=== PATIENT | female | born 1975 | race Caucasian/White ===

== ENCOUNTER 2016-08-28 14:28 | Emergency (ER) | payer SELFPAY ==
[2016-08-28 14:32] VITALS: BP 133/74; BMI 39.9
[2016-08-28] MEDS ORDERED: TETRACAINE HCL ONE (14:43)
[2016-08-28] MEDS ORDERED: FUL-GLO STRIP ONE (14:44)
[2016-08-28] MEDS ORDERED: TORADOL 60 MG VIAL IM ONE (14:53)
[2016-08-28] MEDS ORDERED: ZOFRAN INJ 4 MG VIAL IM ONE (14:55)
--- NOTE | 2016-08-28 14:55 | DR.GENAD ---
HPI - PCP Primary Care Physician: FAWN - HPI Comment HPI Comment: ANUPAMA BELOW. - Complaint/Symptoms Chief Complaint Doctors Comments: RIGHT EYE PAIN, REDNESS AND TEARING UPON WAKING UP THIS AM. SHE IS NOW HAVING HEADACHE, SEVERE PAIN RIGHT FOREHEAD ANDNAUSEA. VOMITED TIMES ONE. DENIES NASAL CONGESTION OR POST NASAL DRAINAGE. Chief Complaint:: PT. C/O RIGHT EYE PAIN, REDNESS, AND WATERING. PT. STATES THE PAIN RADIATES UP TO RIGHT SIDE OF FOREHEAD. PT. ALSO C/O N/V. 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 - Family History History of Family Medical Conditions: Yes Family Medical History: Coronary Artery Disease, Heart Failure, Hypertension - Social History Does patient currently use any type of tobacco product: Yes Have you used tobacco products in the last 12 months: Yes Type of Tobacco Use: Cigarettes How many years tobacco product used: 26 Does any household member use tobacco: Yes Alcohol Use: None Do you use any recreational Drugs:: No Lives With: Spouse Lives Where: Home - infectious screening In the last 2 months have you had wt loss of >10#?: NO Have you had fever, night sweats or hemotysis?: No Have you traveled outside the country in the last 6 months?: No Isolation: Standard ROS - Review of Systems Constitutional: No Symptoms Reported. negative: Chills, Fever Eyes: Eye Pain, Blurred Vision, Tearing, Discharge, Photophobia ENTM: No Symptoms Reported Respiratoy: No Symptoms Reported Cardiovascular: No Symptoms Reported Gastrointestinal/Abdominal: No Symptoms Reported Genitourinary: No Symptoms Reported Neurological: Headache Musculoskeletal: Muscle Pain Integumentary: No Symptoms Reported Hematologic/Lymphatic: No Symptoms Reported Endocrine: No Symptoms Reported All Other Systems: Reviewed and Negative PE - Vital Signs Vitals: Temperature 97.8 F Pulse Rate 93 Respiratory Rate 18 Blood Pressure [Right Arm] 105/51 Blood Pressure [Left Arm] 120/57 Blood Pressure 133/74 O2 Sat by Pulse Oximetry 96 - General Limitations: No Limitations General Appearance: Alert - Head Head Exam: Normal Inspection - Eyes Eye exam: PERRL, EOMI, Conjunctival Injection (RIGHT GREATER THAN LEFT.), Periorbital Tenderness (RIGHT EYE) - ENT ENT Exam: Normal External Ear Exam External Ear Exam: Normal External Inspection TM/Canal Exam: Bilateral Normal Nose Exam: Sinus Tenderness (NASAL AND TIGHT FRONTAL SINUS TENDER.) Mouth Exam: Normal Inspection Throat Exam: Normal Inspection - Neck Neck Exam: Normal Inspection - Chest Chest Inspection: Symmetric Chest Wall Rise - Respiratory Respiratory Exam: Normal Lung Sounds Bilat Respiratory Exam: Bilateral Clear to Auscultation - Cardiovascular Cardiovascular Exam: Regular Rate, Normal Rhythm, Normal Heart Sounds - Abdominal Exam Abdominal Exam: Normal Bowel Sounds, Soft. negative: Tenderness - Extremities Extremities Exam: Normal Inspection - Back Back Exam: Normal Inspection - Neurologic Neurological Exam: Alert, Oriented X3 - Psychiatric Psychiatric Exam: Anxious - Skin Skin Exam: Erythema MDM - Additional Information Additional Information Obtained From: Family - Differential Diagnosis Differential Diagnosis: CONJUNCTIVITIS, HEADACHE, SINUSITIS, CORNEA ABRASION Course - Treatment Treatment: SEE ORDERS. FLUERO DYE RIGHT EYE. CORNEA ABRASION RIGHT EYE. IM PAIN MED IN ED. - Reevaluation 1st: Improved (PAIN DECREASING) - Education/Counseling Education/Counseling: Patient, Family, Education Educated On: Treatment, Diagnosis, Needs for Follow Up ROR - XRAY XRAY Interpreted by: Radiologist XRAY Findings: REPORT DISCUSS WITH PATIENT - Diagnosis Discharge Problem: Conjunctivitis of both eyes Qualifiers: Conjunctivitis type: unspecified Qualified Code(s): H10.9 - Unspecified conjunctivitis Sinusitis Qualifiers: Sinusitis location: pansinusitis Chronicity: acute Recurrence: not specified as recurrent Qualified Code(s): J01.40 - Acute pansinusitis, unspecified - Discharge Plan Disposition: HOME, SELF-CARE Condition: Stable Prescriptions: Amoxicillin [Amoxil 875 mg] 875 mg PO BID #20 tab [id number]-Enwvrtav [Fioricet Tab] 1 tab PO Q8H PRN #30 tab PRN Reason: Migraine Headache Cetirizine HCl [Zyrtec Tab 10 mg] 10 mg PO DAILY #30 tab - Follow ups/Referrals Follow ups/Referrals: ANNEMARIE AUGUSTINE [Primary Care Provider] - 1 day - Instructions Instructions: Bacterial Conjunctivitis, Sinusitis, Adult, [id number], Sinus Headache Additional Instructions: RETURN TO ED IF WORSE.
[2016-08-28] MEDS ORDERED: GENTAMICIN SULF (OPHTH) AFFEYE ONE (14:59)
[2016-08-28] MEDS ORDERED: TORADOL 60 MG VIAL ONE (15:04)
[2016-08-28] MEDS ORDERED: ZOFRAN INJ 4 MG VIAL ONE (15:04)
--- NOTE | 2016-08-28 15:40 | CT ---
HISTORY: Right eye pain and redness, nausea and vomiting Study: CT facial bones Comparison: None Technique: Multiple axial images of the facial structures were obtained from the mandible to superio r portions of the orbits. Findings: The bilateral bony orbits are intact. There is very mild right intraorbital edema noted. No postsept al abnormality is identified. Air-fluid levels are identified within the bilateral sphenoid sinuses as well as within the right maxillary sinus. There is also mucosal thickening throughout the paranas al sinuses. These findings are most consistent with acute on chronic sinusitis. There are postsurgic al changes of the paranasal sinuses including bilateral antrostomies and uncinectomies as well as pa rtial ethmoidectomies. No acute bony abnormality is identified within the facial bones. The nasal se ptum is midline. There appears to be a dental ligia involving the right maxillary 2nd molar tooth. T he visualized brain is grossly unremarkable. IMPRESSION: 1. Findings most consistent with acute on chronic sinusitis. There is very mild right intraorbital e ernesto without postseptal abnormality identified. Reported By:
[2016-08-28] MEDS ORDERED: MORPHINE SULFATE INJ 4 MG IM ONE (16:01)
[2016-08-28] MEDS ORDERED: ROCEPHIN VIAL 1 GM IM ONE (16:01)
[2016-08-28] MEDS ORDERED: GENTAMICIN SULF (OPHTH) ONE (16:03)
[2016-08-28] MEDS ORDERED: MORPHINE SULFATE INJ 4 MG ONE (16:04)
[2016-08-28] MEDS ORDERED: ROCEPHIN VIAL 1 GM ONE (16:04)
== END 2016-08-28 16:14 | disposition home or self-care (01) ==
LOC: ER 14:33
DX: J01.40 Acute pansinusitis, unspecified (principal); H10.89 Other conjunctivitis
CPT/HCPCS: 70486; 96372; 99282; 99283; J0696; J1885; J2270; J2405

== ENCOUNTER 2016-09-29 22:03 | Emergency (ER) | payer SELFPAY ==
[2016-09-29 22:11] VITALS: BP 166/83
--- NOTE | 2016-09-29 23:59 | DR.GENAD ---
HPI - PCP Primary Care Physician: FAWN - Complaint/Symptoms Chief Complaint Doctors Comments: Left flank pain since this morning and decrease urinary output. no fever, chills, sweats, vomiting. Chief Complaint:: PT C/O LOWER BACK PAIN. PT STATES SHE HAS A HISTORY OF RENAL PROBLEMS AND IS UNSURE IF THIS PAIN IS A KIDNEY STONE OR NEPHRITIS. PT ALSO COMPLAINING OF NAUSEA. 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, Tonsillectomy - Family History History of Family Medical Conditions: Yes Family Medical History: Coronary Artery Disease, Heart Failure, Hypertension - Social History Alcohol Use: None Do you use any recreational Drugs:: No Lives With: Family Lives Where: Home - infectious screening In the last 2 months have you had wt loss of >10#?: NO Have you had fever, night sweats or hemotysis?: No Have you traveled outside the country in the last 6 months?: No Isolation: Standard ROS - Review of Systems Constitutional: No Symptoms Reported Respiratoy: No Symptoms Reported Cardiovascular: No Symptoms Reported Gastrointestinal/Abdominal: Nausea Neurological: No Symptoms Reported Musculoskeletal: Back Pain, Back Integumentary: No Symptoms Reported Hematologic/Lymphatic: No Symptoms Reported Endocrine: No Symptoms Reported Psychiatric: No Symptoms Reported All Other Systems: Reviewed and Negative PE - Vital Signs Vitals: Temperature 98.0 F Pulse Rate 100 Respiratory Rate 20 Blood Pressure [Right Arm] 105/51 Blood Pressure [Left Arm] 120/57 Blood Pressure 166/83 O2 Sat by Pulse Oximetry 98 - General Limitations: No Limitations General Appearance: Alert, In No Apparent Distress - Chest Chest Inspection: Normal Inspection - Respiratory Respiratory Exam: Normal Lung Sounds Bilat - Cardiovascular Cardiovascular Exam: Regular Rate, Normal Rhythm, Normal Heart Sounds - Abdominal Exam Abdominal Exam: Normal Inspection, Normal Bowel Sounds, Soft - Extremities Extremities Exam: Normal Inspection, Full ROM - Back Back Exam: (L) CVA Tenderness - Neurologic Neurological Exam: Alert, Oriented X3 - Psychiatric Psychiatric Exam: Normal Affect - Skin Skin Exam: Warm, Dry, Intact, Normal Color ROR - Labs Reviewed Result Diagrams: 09/30/16 00:55 09/30/16 00:55 Laboratory: WBC 10.6 X10^3/uL (3.6-10.0) H 09/30/16 00:55 RBC 5.62 X10^6/uL (3.5-5.4) H 09/30/16 00:55 Hgb 16.5 g/dL (12.0-16.0) H 09/30/16 00:55 Hct 48.3 % (36.0-47.0) H 09/30/16 00:55 MCV 85.9 fL (80.0-100.0) 09/30/16 00:55 MCH 29.3 pg (27.0-34.0) 09/30/16 00:55 MCHC 34.1 g/dL (33.0-35.0) 09/30/16 00:55 RDW 13.8 % (11.6-16.5) 09/30/16 00:55 Plt Count 176 X10^3/uL (150.0-450.0) 09/30/16 00:55 Plt Count Comment Adequate (ADEQUATE) 09/30/16 00:55 MPV 10.2 fL (7.4-11.0) 09/30/16 00:55 Neut % 48.9 % (42.0-75.0) 09/30/16 00:55 Lymph % 36.4 % (21.0-51.0) 09/30/16 00:55 [place] % 7.1 % (0.0-13.0) 09/30/16 00:55 Eos % 6.7 % (0.9-2.9) H 09/30/16 00:55 Baso % 0.9 % (0.2-1.0) 09/30/16 00:55 Neut # 5.2 x10^3/uL (2.2-4.8) H 09/30/16 00:55 Lymph # 3.9 X10^3/uL (1.3-2.9) H 09/30/16 00:55 [place] # 0.7 x10^3/uL (0.3-0.8) 09/30/16 00:55 Eos # 0.7 x10^3/uL (0.0-0.2) H 09/30/16 00:55 Baso # 0.1 X10^3/uL (0.0-0.1) 09/30/16 00:55 Absolute Nucleated RBC 0.2 /100WBC 09/30/16 00:55 Plt Clumps, EDTA Rare 09/30/16 00:55 Plt Morphology Comment Normal (NORMAL) 09/30/16 00:55 RBC Morphology Normal (NORMAL) 09/30/16 00:55 Sodium 140 mmol/L (136-145) 09/30/16 00:55 Corrected Sodium 140 mmol/L (136-145) 09/30/16 00:55 Potassium 4.8 mmol/L (3.5-5.1) 09/30/16 00:55 Chloride 106 mmol/L (98-107) 09/30/16 00:55 Carbon Dioxide 24.1 mmol/L (21-32) 09/30/16 00:55 BUN 16 mg/dL (7-18) 09/30/16 00:55 Creatinine 1.03 mg/dL (0.55-1.02) H 09/30/16 00:55 Est GFR (MDRD) Af Amer > 60 (>60) 09/30/16 00:55 Est GFR (MDRD) Non-Af > 60 (>60) 09/30/16 00:55 Glucose 119 mg/dL (65-99) H 09/30/16 00:55 Calcium 8.7 mg/dL (8.5-10.1) 09/30/16 00:55 Corrected Calcium TNP 09/30/16 00:55 Total Bilirubin 0.30 mg/dL (0.2-1.0) 09/30/16 00:55 AST 29 Units/L (15-37) 09/30/16 00:55 ALT 36 Units/L (12-78) 09/30/16 00:55 Alkaline Phosphatase 57 Units/L (46-116) 09/30/16 00:55 Total Protein 7.2 g/dL (6.4-8.2) 09/30/16 00:55 Albumin 3.4 g/dL (3.4-5.0) 09/30/16 00:55 Globulin 3.8 g/dL (2.5-4.5) 09/30/16 00:55 Albumin/Globulin Ratio 0.9 Ratio (1.1-2.1) L 09/30/16 00:55 Specimen Type Clean catch urine 09/30/16 00:06 Urine Color Yellow (YELLOW) 09/30/16 00:06 Urine Appearance Hazy (CLEAR) 09/30/16 00:06 Urine pH 5.0 (5.0 - 8.0) 09/30/16 00:06 Ur Specific [place] 1.025 (1.000-1.030) 09/30/16 00:06 Urine Protein 1+ (NEGATIVE) 09/30/16 00:06 Urine Glucose (UA) Negative (NEGATIVE) 09/30/16 00:06 Urine Ketones Negative (NEGATIVE) 09/30/16 00:06 Urine Occult Blood 1+ (NEGATIVE) 09/30/16 00:06 Urine Nitrite Negative (NEGATIVE) 09/30/16 00:06 Urine Bilirubin Negative (NEGATIVE) 09/30/16 00:06 Urine Urobilinogen 1+ (NORMAL) 09/30/16 00:06 Ur Leukocyte Esterase 1+ (NEGATIVE) 09/30/16 00:06 Urine RBC 0-3 /HPF (NEGATIVE) 09/30/16 00:06 Urine WBC 0-3 /HPF (NEGATIVE) 09/30/16 00:06 Ur Squamous Epith Cells Numerous /HPF (NEGATIVE) 09/30/16 00:06 Urine Bacteria 1+ /HPF (NEGATIVE) 09/30/16 00:06 Urine Mucus Moderate /HPF (NEGATIVE) 09/30/16 00:06 Ur Culture Indicated? No/not indicated 09/30/16 00:06 - Diagnosis Discharge Problem: Back pain, Hypertension, Nephritis - Discharge Plan Disposition: 01 HOME, SELF-CARE Condition: Stable - Follow ups/Referrals Follow ups/Referrals: ANNEMARIE AUGUSTINE [Primary Care Provider] - 3 days - Instructions
[2016-09-30 00:49] LABS: BILIRUBIN,URINE NEGATIVE (NEGATIVE); BLOOD/HEMOGLOBIN,URINE 1+ (NEGATIVE); GLUCOSE, URINE NEGATIVE (NEGATIVE); KETONES,URINE NEGATIVE (NEGATIVE); LEUKOCYTE ESTERASE ,URINE 1+ (NEGATIVE); NITRITES,URINE NEGATIVE (NEGATIVE); PROTEIN,URINE 1+ (NEGATIVE); UROBILINOGEN,URINE 1+ (NORMAL)
[2016-09-30 01:03] LABS: APPEARANCE,URINE HAZY (CLEAR); BACTERIA,URINE 1+ /HPF (NEGATIVE); COLOR,URINE YELLOW (YELLOW); MUCUS,URINE MODERATE /HPF (NEGATIVE); RBC,URINE 0-3 /HPF (NEGATIVE); SQUAMOUS EPITHELIAL CELL,UR NUMEROUS /HPF (NEGATIVE)
[2016-09-30 01:21] LABS: EOSINOPHILS # (AUTO) 0.7 x10^3/uL (0.0-0.2); LYMPHOCYTES # (AUTO) 3.9 X10^3/uL (1.3-2.9); RED CELL DISTRIBUTION WIDTH 13.8 % (11.6-16.5)
[2016-09-30 01:22] LABS: ALANINE AMINOTRANSFERASE 36 Units/L (12-78); ALBUMIN 3.4 g/dL (3.4-5.0); ALKALINE PHOSPHATASE 57 Units/L (46-116); ASPARTATE AMINO TRANSFERASE 29 Units/L (15-37); BLOOD UREA NITROGEN 16 mg/dL (7-18); CALCIUM 8.7 mg/dL (8.5-10.1); CARBON DIOXIDE 24.1 mmol/L (21-32); CHLORIDE 106 mmol/L (98-107); COR NA(FOR HYPERGLY) 140 mmol/L (136-145); CREATININE 1.03 mg/dL (0.55-1.02); GLUCOSE 119 mg/dL (65-99); SODIUM 140 mmol/L (136-145); TOTAL PROTEIN 7.2 g/dL (6.4-8.2); eGFR BLACK RACES > 60 (>60); eGFR NON BLACK RACES > 60 (>60)
[2016-09-30 01:25] LABS: BASOPHILS # (AUTO) 0.1 X10^3/uL (0.0-0.1); BASOPHILS % (AUTO) 0.9 % (0.2-1.0); EOSINOPHILS % (AUTO) 6.7 % (0.9-2.9); HEMATOCRIT 48.3 % (36.0-47.0); HEMOGLOBIN 16.5 g/dL (12.0-16.0); LYMPHOCYTES % (AUTO) 36.4 % (21.0-51.0); MEAN CORPUSCULAR HEMOGLOBIN 29.3 pg (27.0-34.0); MEAN CORPUSCULAR HGB CONC 34.1 g/dL (33.0-35.0); MEAN CORPUSCULAR VOLUME 85.9 fL (80.0-100.0); MEAN PLATELET VOLUME 10.2 fL (7.4-11.0); MONOCYTES # (AUTO) 0.7 x10^3/uL (0.3-0.8); MONOCYTES % (AUTO) 7.1 % (0.0-13.0); NEUTROPHILS # (AUTO) 5.2 x10^3/uL (2.2-4.8); NEUTROPHILS % (AUTO) 48.9 % (42.0-75.0); PLATELET COUNT 176 X10^3/uL (150.0-450.0); RED BLOOD COUNT 5.62 X10^6/uL (3.5-5.4); WHITE BLOOD COUNT 10.6 X10^3/uL (3.6-10.0)
[2016-09-30] MEDS ORDERED: TORADOL 60 MG VIAL IM ONE (01:34)
[2016-09-30] MEDS ORDERED: NORFLEX INJ IM ONE (01:35)
[2016-09-30 01:38] LABS: PLATELET MORPHOLOGY COMMENT NORMAL (NORMAL)
[2016-09-30] MEDS ORDERED: ZOFRAN INJ 4 MG VIAL ONE (01:56)
[2016-09-30] MEDS ORDERED: TORADOL 60 MG VIAL ONE (01:56)
[2016-09-30] MEDS ORDERED: NORFLEX INJ ONE (01:56)
--- NOTE | 2016-09-30 02:08 | CT ---
CT abdomen and pelvis without contrast Indication: Left flank pain. Comparison: None Technique: CT images of the abdomen and pelvis were obtained without contrast per protocol. Automati c exposure control was utilized. Findings: The lung bases are essentially clear. No aggressive osseous lesions. Previous cholecystectomy. Within noncontrast limitations, the liver, spleen, stomach, duodenum, panc reas, adrenals, and kidneys appear normal. Specifically there is no nephrolithiasis or hydronephrosi s. No ureteral stone identified. The appendix is surgically absent. The uterus and ovaries are noted . The urinary bladder and rectum are unremarkable. No free fluid or adenopathy identified. Impression: No source for patient's symptoms identified. Specifically, no nephrolithiasis or hydronephrosis. Reported By:
[2016-09-30] MEDS ORDERED: DECADRON INJ IM ONE (02:11)
[2016-09-30] MEDS ORDERED: DECADRON INJ ONE (02:29)
== END 2016-09-30 02:41 | disposition home or self-care (01) ==
LOC: ER 22:03
DX: N05.9 Unspecified nephritic syndrome with unspecified morphologic changes (principal); I10 Essential (primary) hypertension; M54.5 Low back pain
CPT/HCPCS: 36415; 74176; 80053; 81001; 85025; 96372; 99283; J1100; J1885; J2360; J2405

== ENCOUNTER 2016-09-30 09:53 | Observation (INO) | payer SELFPAY ==
[2016-09-30] MEDS ORDERED: LEVAQUIN PREMIX IV 500 MG 500 MG/100 ML BAG IV SCH (11:00)
[2016-09-30] MEDS ORDERED: NS 1000 ML 1,000 ML ONE (13:44)
[2016-09-30] MEDS ORDERED: NICODERM PATCH 21 MG/24 HR TD ONE (13:45)
[2016-09-30] MEDS ORDERED: NS 1000 ML 1,000 ML IV SCH (14:00)
[2016-09-30] MEDS ORDERED: NICODERM PATCH TD SCH (14:00)
[2016-09-30] MEDS ORDERED: PHENERGAN INJ 25 MG IV PRN (14:06)
[2016-09-30] MEDS: NS 1000 ML 1,000 ML IV SCH ×2 (14:06→23:40)
[2016-09-30] MEDS: MORPHINE SULFATE INJ 2 MG IVP PRN ×3 (14:07→23:35)
[2016-09-30 14:21] LABS: BASOPHILS % (AUTO) 0.3 % (0.2-1.0); HEMATOCRIT 45.8 % (36.0-47.0); HEMOGLOBIN 15.8 g/dL (12.0-16.0); LYMPHOCYTES # (AUTO) 1.1 X10^3/uL (1.3-2.9); LYMPHOCYTES % (AUTO) 10.8 % (21.0-51.0); MEAN CORPUSCULAR HGB CONC 34.6 g/dL (33.0-35.0); MEAN CORPUSCULAR VOLUME 86.6 fL (80.0-100.0); MEAN PLATELET VOLUME 9.9 fL (7.4-11.0); MONOCYTES # (AUTO) 0.1 x10^3/uL (0.3-0.8); MONOCYTES % (AUTO) 1.1 % (0.0-13.0); NEUTROPHILS # (AUTO) 8.9 x10^3/uL (2.2-4.8); NEUTROPHILS % (AUTO) 87.8 % (42.0-75.0); PLATELET COUNT 242 X10^3/uL (150.0-450.0); RED BLOOD COUNT 5.28 X10^6/uL (3.5-5.4); RED CELL DISTRIBUTION WIDTH 13.7 % (11.6-16.5); WHITE BLOOD COUNT 10.2 X10^3/uL (3.6-10.0)
[2016-09-30 14:49] LABS: ALANINE AMINOTRANSFERASE 37 Units/L (12-78); ALBUMIN 3.7 g/dL (3.4-5.0); ALKALINE PHOSPHATASE 64 Units/L (46-116); ASPARTATE AMINO TRANSFERASE 21 Units/L (15-37); BLOOD UREA NITROGEN 21 mg/dL (7-18); CALCIUM 9.8 mg/dL (8.5-10.1); CARBON DIOXIDE 26.5 mmol/L (21-32); CHLORIDE 107 mmol/L (98-107); COR NA(FOR HYPERGLY) 143 mmol/L (136-145); GLUCOSE 178 mg/dL (65-99); MAGNESIUM 2.1 mg/dL (1.7-2.9); SODIUM 141 mmol/L (136-145); TOTAL PROTEIN 7.7 g/dL (6.4-8.2); eGFR BLACK RACES > 60 (>60); eGFR NON BLACK RACES 52 (>60)
--- NOTE | 2016-09-30 14:56 | RAD ---
HISTORY: Chest pain Study: Chest one view Comparison: February 18, 2016 Findings: The trachea is midline. The cardiac silhouette is unremarkable. The lungs are clear without focal infiltrate or effusion. The bony thorax is unremarkable. There is a port present on the left. IMPRESSION: 1. No acute cardiopulmonary disease. Reported By:
[2016-09-30 15:27] VITALS: BMI 41.5
[2016-09-30] MEDS: PROTONIX TAB 40 MG PO SCH (15:44)
[2016-09-30] MEDS: LEVSIN/MAALOX/LIDOC VISC PO PRN (15:44)
[2016-09-30 16:34] LABS: CREATINE KINASE 74 Units/L (26-192); CREATINE KINASE MB < 1.0 ng/mL (0-4.0); TROPONIN I < 0.02 ng/mL (0-1.5)
[2016-09-30 16:37] LABS: CKMB % 1.4 % (<4)
--- NOTE | 2016-09-30 17:12 | DR.H&P ---
H&P - History & Physical for Day of: H&P Date: 09/30/16 - Chief Complaint Chief Complaint: Chest Pain, UTI and kidney pain - Allergies Allergies/Adverse Reactions: Allergies Allergy/AdvReac Type Severity Reaction Status Date / Time Acetaminophen [From Percocet] Allergy Verified 09/30/16 13:21 Codeine Allergy Verified 09/30/16 13:21 Doxycycline Allergy Verified 09/30/16 13:22 Erythromycin Allergy Verified 09/30/16 13:22 Hydrocodone Allergy Verified 09/30/16 13:21 Oxycodone [From Percocet] Allergy Verified 09/30/16 13:21 - History of Present Illness History of Present Illness: The patient is a 41-year-old white female who presented to the [facility] care clinic with complaint of nausea. Patient states that she had been to the emergency room name last night and was given a Toradol shot. States she thinks she is an larger reaction. Patient states that she did have a urinary tract infection and did have nephritis. States that she did have blood in her urine. Patient states the blood is not visible to the eye. Patient does have a history of IgA nephropathy. Patient states it feels like there is rocks in her kidneys and they are being squeezed. Patient also complains of having intermittent chest pain with pain radiating down the left chest with associated nausea and diaphoresis. - Past Medical History Past Medical History: Hypertension Additional Medical History: Tachycardia, IgA Nephropathy, Sjogren's Disease, Crohn's Disease, Hepatic Steatosis - Past Surgical History Surgical History: Appendectomy, Cholecystectomy Additional Surgical History: EGD 01/28/16 - Family History Family Medical History: Cancer, Hypertension - Social History Does patient currently use any type of tobacco product: Yes Have you used tobacco products in the last 12 months: Yes Type of Tobacco Use: Cigarettes How many years tobacco product used: 20 Alcohol Use: None - Medications Home Medications: Clonazepam [Klonopin Tab 0.5 mg] 0.25 mg PO BID 09/30/16 [History Confirmed 01/08] Lisinopril [ZESTRIL *] 1 tab PO BID 09/30/16 [History Confirmed 09/30/16] Omeprazole [PRILOSEC 20 MG *] 40 mg PO DAILY 09/30/16 [History Confirmed ] Tramadol HCl [ULTRAM 50 MG *] 1 - 2 tabs PO Q6H PRN 09/30/16 [History Confirmed 09/30/16] - Review of Systems Constitutional: Weakness Eyes: No Symptoms Reported ENT: No Symptoms Reported Respiratory: No Symptoms Reported Cardiovascular: Chest Pain Gastrointestinal: Nausea, Abdominal Pain Genitourinary: Hematuria Musculoskeletal: Back Pain Skin: No Symptoms Reported Neurological: No Symptoms Reported - Physical Exam Vital Signs: Pulse Rate [Apical] 91 Respiratory Rate 20 Blood Pressure [Right Arm] 161/91 Blood Pressure [Left Arm] 120/57 Blood Pressure 166/83 O2 Sat by Pulse Oximetry 95 Oriented: Normal Eyes: Normal Ear: Normal Nose: Normal Throat: Normal Respiratory: Clear Throughout Cardiovascular: Normal : Hematuria Auscultation: Bowel Sounds: Normal Palpation: Normal Tenderness: Mild (CVA tenderness) Skin: Normal Musculoskeletal: Normal Psychiatric: Normal Mood Description: Calm Affect: Normal Speech Pattern: Clear - Assessment/Plan (1) IgA nephropathy Status: Acute Plan: LABS, [facility] (2) Nephritis Status: Acute Plan: LABS, [facility] (3) UTI (urinary tract infection) Qualifiers: Urinary tract infection type: U Hematuria presence: H Indwelling urinary catheter type: I Encounter type: E Status: Acute Plan: LABS, [facility] (4) Chest pain Qualifiers: Chest pain type: C Ischemic chest pain type: I Status: Acute Plan: CARDIAC ENZYMES, EKGS
[2016-09-30] MEDS ORDERED: ULTRAM PO PRN (17:17)
[2016-09-30 18:18] LABS: BILIRUBIN,URINE NEGATIVE (NEGATIVE); BLOOD/HEMOGLOBIN,URINE NEGATIVE (NEGATIVE); GLUCOSE, URINE NEGATIVE (NEGATIVE); KETONES,URINE NEGATIVE (NEGATIVE); LEUKOCYTE ESTERASE ,URINE 1+ (NEGATIVE); NITRITES,URINE NEGATIVE (NEGATIVE); PROTEIN,URINE 1+ (NEGATIVE); UROBILINOGEN,URINE NORMAL (NORMAL)
[2016-09-30 18:34] LABS: APPEARANCE,URINE CLOUDY (CLEAR); COLOR,URINE YELLOW (YELLOW); RBC,URINE 0-2 /HPF (NEGATIVE)
[2016-09-30 18:35] LABS: BACTERIA,URINE 4+ /HPF (NEGATIVE); SQUAMOUS EPITHELIAL CELL,UR NEGATIVE /HPF (NEGATIVE)
[2016-09-30 20:51] LABS: CKMB % 1.9 % (<4); CREATINE KINASE 52 Units/L (26-192); CREATINE KINASE MB < 1.0 ng/mL (0-4.0); TROPONIN I < 0.02 ng/mL (0-1.5)
[2016-09-30] MEDS ORDERED: ZESTRIL TAB 20 MG ONE (20:52)
[2016-09-30] MEDS: KLONOPIN TAB 0.5 MG PO SCH (21:04)
[2016-09-30] MEDS: ZESTRIL TAB 20 MG PO SCH (21:05)
[2016-10-01] MEDS: LEVSIN/MAALOX/LIDOC VISC PO PRN ×2 (03:02→13:33)
[2016-10-01 03:03] LABS: CHOL/HDL RATIO 3.7 (0.0-5.0)
[2016-10-01 03:11] LABS: CKMB % 2.4 % (<4); CREATINE KINASE 41 Units/L (26-192); CREATINE KINASE MB < 1.0 ng/mL (0-4.0); TROPONIN I < 0.02 ng/mL (0-1.5)
[2016-10-01] MEDS: NS 1000 ML 1,000 ML IV SCH (03:24)
[2016-10-01] MEDS: MORPHINE SULFATE INJ 2 MG IVP PRN ×3 (04:51→13:34)
[2016-10-01] MEDS ORDERED: ZESTRIL TAB 20 MG ONE (08:32)
[2016-10-01] MEDS: PROTONIX TAB 40 MG PO SCH (08:34)
[2016-10-01] MEDS: ZESTRIL TAB 20 MG PO SCH (08:34)
[2016-10-01] MEDS: KLONOPIN TAB 0.5 MG PO SCH (08:34)
[2016-10-01] MEDS ORDERED: PriLOSEC PO SCH (09:00)
[2016-10-01 16:35] VITALS: BP 109/57
== END 2016-10-01 16:30 | disposition home or self-care (01) | DRG 313 ==
LOC: ICU 09:53 → UNDOADMOB 09:53 → ICU 12:27
PROVIDERS: ADMIT Internal Medicine; ATTEND Internal Medicine
DX: R07.89 Other chest pain (principal); N39.0 Urinary tract infection, site not specified; R61 Generalized hyperhidrosis; N02.8 Recurrent and persistent hematuria with other morphologic changes; N00.9 Acute nephritic syndrome with unspecified morphologic changes; R94.4 Abnormal results of kidney function studies; R73.09 Other abnormal glucose
CPT/HCPCS: 36415; 71010; 80053; 80061; 81001; 82550; 82553; 83735; 84484; 85025; 87086; 93005; 93010; A4222; G0378; J1956; J2270; J2550